=== PATIENT | male | born 1985 | race Caucasian/White ===

== ENCOUNTER 2024-09-16 12:03 | Emergency (ER) | payer OTHER ==
[~2024-09-16] VITALS: Ht 160 cm; Wt 100.0 kg
[2024-09-16 12:06] VITALS: O2SAT 99
[2024-09-16 12:08] VITALS: BP 148/93; PULSE 117; RESP 12; TEMP 36.9; O2SAT 98
[2024-09-16] MEDS ORDERED: AMOX-494 MT (13:36)
== END 2024-09-16 15:12 | disposition home or self-care (01) ==
LOC: ER 12:03
DX: J02.9 Acute pharyngitis, unspecified (principal); Z90.49 Acquired absence of other specified parts of digestive tract
CPT/HCPCS: 99283